=== PATIENT | male | born 1965 | race African-American/Black ===

== ENCOUNTER 2017-05-29 09:14 | Emergency (ER) | payer MEDICAID ==
[~2017-05-29] VITALS: Ht 185.4 cm; Wt 113.0 kg
[~2017-05-29 09:14] MED LIST: GABA300C; HYDR-519; LOVA20TA2; NAPR-677; PARO30TA76; TOPXL5; TRAZ-132; TRIA1TAB92 PO
[2017-05-29 09:33] VITALS: BP 132/91
== END 2017-05-29 11:55 | disposition home or self-care (01) ==
LOC: ER 09:46
DX: R21 Rash and other nonspecific skin eruption (principal); E78.00 Pure hypercholesterolemia, unspecified; I10 Essential (primary) hypertension
CPT/HCPCS: 99282

== ENCOUNTER 2017-07-06 08:16 | Emergency (ER) | payer MEDICAID ==
[~2017-07-06] VITALS: Ht 188 cm; Wt 113.0 kg
[2017-07-06 10:01] VITALS: BP 122/82
== END 2017-07-06 10:37 | disposition home or self-care (01) ==
LOC: ER 10:35
DX: B35.4 Tinea corporis (principal); I10 Essential (primary) hypertension; E78.00 Pure hypercholesterolemia, unspecified; Z76.0 Encounter for issue of repeat prescription
CPT/HCPCS: 99283; Z7610

== ENCOUNTER 2017-12-25 08:00 | Emergency (ER) | payer MEDICAID ==
[~2017-12-25] VITALS: Ht 185.4 cm; Wt 113.6 kg
[2017-12-25 08:23] VITALS: BP 141/98
== END 2017-12-25 09:10 | disposition home or self-care (01) ==
LOC: ER 09:03
DX: H66.91 Otitis media, unspecified, right ear (principal); J32.9 Chronic sinusitis, unspecified; I10 Essential (primary) hypertension; E78.00 Pure hypercholesterolemia, unspecified; F17.200 Nicotine dependence, unspecified, uncomplicated
CPT/HCPCS: 99283

== ENCOUNTER 2018-02-20 07:55 | Emergency (ER) | payer MEDICAID ==
[~2018-02-20] VITALS: Ht 188 cm; Wt 116.0 kg
[2018-02-20 12:25] VITALS: BP 135/61
== END 2018-02-20 12:30 | disposition home or self-care (01) ==
LOC: ER 08:39
DX: H66.92 Otitis media, unspecified, left ear (principal); I10 Essential (primary) hypertension; E78.00 Pure hypercholesterolemia, unspecified; Z79.899 Other long term (current) drug therapy
CPT/HCPCS: 99283

== ENCOUNTER 2018-05-24 10:05 | Emergency (ER) | payer MEDICAID ==
[~2018-05-24] VITALS: Ht 188 cm; Wt 113.0 kg
[2018-05-24 10:49] VITALS: BP 135/101
== END 2018-05-24 10:51 | disposition home or self-care (01) ==
LOC: ER 10:05
DX: H00.015 Hordeolum externum left lower eyelid (principal); I10 Essential (primary) hypertension; E78.00 Pure hypercholesterolemia, unspecified
CPT/HCPCS: 99283

== ENCOUNTER 2018-08-10 21:45 | Emergency (ER) | payer MEDICAID ==
[~2018-08-10 21:45] MED LIST changes: -TRAZ-132; +TRAZ-213
== END 2018-08-11 00:38 | disposition left against medical advice (07) ==
LOC: ER 21:45
DX: R51 Headache (principal); Z53.21 Procedure and treatment not carried out due to patient leaving prior to being seen by health care provider

== ENCOUNTER 2018-08-12 08:46 | Emergency (ER) | payer MEDICAID ==
[~2018-08-12] VITALS: Ht 188 cm; Wt 113.0 kg
[2018-08-12 08:59] VITALS: BP 121/86
[2018-08-12] MEDS ORDERED: LIDOCAINE HCL 1% 20ML VIAL (Pyxis) INJ INFIL ONE (11:15)
[2018-08-12] MEDS ORDERED: CEFTRIAXONE SODIUM 500 MG/VIAL IM ONE (11:15)
[2018-08-12] MEDS ORDERED: TETANUS, DIPHTHERIA, PERTUSSIS VAC/PF 0.5ML (>7YR OLD) IM ONE (11:15)
[2018-08-12] MEDS ORDERED: LIDOCAINE HCL 1% 10 MG/ML 10ML VIAL INJ NR (11:40)
== END 2018-08-12 13:07 | disposition home or self-care (01) ==
LOC: ER 08:46
DX: S01.511A Laceration without foreign body of lip, initial encounter (principal); L08.9 Local infection of the skin and subcutaneous tissue, unspecified; S00.531A Contusion of lip, initial encounter; E78.00 Pure hypercholesterolemia, unspecified; I10 Essential (primary) hypertension; F17.200 Nicotine dependence, unspecified, uncomplicated; W22.8XXA Striking against or struck by other objects, initial encounter; Y93.89 Activity, other specified; Y92.488 Other paved roadways as the place of occurrence of the external cause
CPT/HCPCS: 12011; 90471; 90715; 96372; 99284; J0696; J3490

== ENCOUNTER 2018-08-19 08:00 | Emergency (ER) | payer MEDICAID ==
[~2018-08-19] VITALS: Ht 188 cm; Wt 113.0 kg
[2018-08-19 08:15] VITALS: BP 130/85
== END 2018-08-19 12:00 | disposition home or self-care (01) ==
LOC: ER 09:54
DX: Z48.02 Encounter for removal of sutures (principal); I10 Essential (primary) hypertension; E78.00 Pure hypercholesterolemia, unspecified; F17.200 Nicotine dependence, unspecified, uncomplicated
CPT/HCPCS: 99281

== ENCOUNTER 2019-03-06 08:02 | Emergency (ER) | payer MEDICAID ==
[~2019-03-06] VITALS: Ht 188 cm; Wt 115.0 kg
[2019-03-06] MEDS ORDERED: HYDROCODONE/ACETAMINOPHEN 5/325MG TABLET PO ONE (10:30)
[2019-03-06] MEDS ORDERED: CEPHALEXIN 250MG CAPSULE PO ONE (10:30)
[2019-03-06 12:18] VITALS: BP 149/89
== END 2019-03-06 12:07 | disposition home or self-care (01) ==
LOC: ER 08:02
DX: M10.9 Gout, unspecified (principal); E78.00 Pure hypercholesterolemia, unspecified; I10 Essential (primary) hypertension; Z79.899 Other long term (current) drug therapy; Z98.890 Other specified postprocedural states
CPT/HCPCS: 36415; 73630; 84550; 99284; A4217; Z7610

== ENCOUNTER 2019-11-15 14:02 | Emergency (ER) | payer MEDICAID ==
[~2019-11-15] VITALS: Ht 188 cm; Wt 114.0 kg
[~2019-11-15 14:02] MED LIST changes: -TRAZ-213; +TRAZ-252
[2019-11-15 16:56] VITALS: BP 149/99
== END 2019-11-15 19:39 | disposition home or self-care (01) ==
LOC: ER 14:02
DX: H66.92 Otitis media, unspecified, left ear (principal); M19.90 Unspecified osteoarthritis, unspecified site
CPT/HCPCS: 99283

== ENCOUNTER 2021-12-02 06:15 | Emergency (ER) | payer MEDICAID ==
[~2021-12-02] VITALS: Ht 188 cm; Wt 109.0 kg
[2021-12-02 06:21] VITALS: BP 146/97
[2021-12-02] MEDS ORDERED: SULF1TAB48 PO (08:13)
[2021-12-02] MEDS ORDERED: CEPH500T PO (08:13)
== END 2021-12-02 08:34 | disposition home or self-care (01) ==
LOC: ER 06:15
DX: L03.114 Cellulitis of left upper limb (principal); I10 Essential (primary) hypertension; M19.90 Unspecified osteoarthritis, unspecified site; E78.00 Pure hypercholesterolemia, unspecified
CPT/HCPCS: 73080; 99283

== ENCOUNTER 2022-08-31 05:58 | Emergency (ER) | payer MEDICAID ==
[~2022-08-31] VITALS: Ht 188 cm; Wt 116.0 kg
[~2022-08-31 05:58] MED LIST changes: +CEPH500T PO; +SULF1TAB48 PO
[2022-08-31] MEDS ORDERED: AMOX-494 MT (08:37)
[2022-08-31] MEDS ORDERED: NEOM10SO7 RIGHT EAR (08:37)
[2022-08-31 08:48] VITALS: BP 136/85
== END 2022-08-31 08:49 | disposition home or self-care (01) ==
LOC: ER 05:58
DX: H60.91 Unspecified otitis externa, right ear (principal); I10 Essential (primary) hypertension; E78.00 Pure hypercholesterolemia, unspecified
CPT/HCPCS: 99283

== ENCOUNTER 2024-01-30 08:21 | Emergency (ER) | payer MEDICAID ==
[~2024-01-30] VITALS: Ht 182.9 cm; Wt 104.0 kg
[~2024-01-30 08:21] MED LIST changes: +AMOX-494 MT; +NEOM10SO7 RIGHT EAR; -PARO30TA76; +PARO30TA99
[2024-01-30 08:27] VITALS: O2SAT 95
[2024-01-30] MEDS ORDERED: HYDR99LO MT (09:04)
[2024-01-30 10:29] VITALS: BP 136/78; PULSE 98; RESP 20; TEMP 98.7
== END 2024-01-30 10:30 | disposition home or self-care (01) ==
LOC: ER 08:21
DX: R60.9 Edema, unspecified (principal); L30.8 Other specified dermatitis; E78.00 Pure hypercholesterolemia, unspecified; I10 Essential (primary) hypertension
CPT/HCPCS: 99282

== ENCOUNTER 2024-02-07 08:27 | Emergency (ER) | payer MEDICAID ==
[~2024-02-07] VITALS: Ht 188 cm; Wt 110.0 kg
[~2024-02-07 08:27] MED LIST changes: +HYDR99LO MT
[2024-02-07 08:30] VITALS: O2SAT 100
[2024-02-07] MEDS ORDERED: TRIA1TAB92 MT (13:02)
[2024-02-07 13:15] VITALS: BP 143/94; PULSE 76; RESP 18; TEMP 98.2
== END 2024-02-07 13:18 | disposition home or self-care (01) ==
LOC: ER 08:40
DX: R60.0 Localized edema (principal); Z79.899 Other long term (current) drug therapy
CPT/HCPCS: 93971; 99284